=== PATIENT | female | born 1935 | race Caucasian/White ===

== ENCOUNTER 2020-08-04 07:44 | Outpatient (CLI) | payer MEDICARE ==
[~2020-08-04 07:44] MED LIST: ASPI-696 PO; ATOR40TA78 PO; CARV6.2512 PO; DIGO125T81 PO; DOCU-131 PO; FURO40TA6 PO; LISI2.5T PO; METO-282 PO; TICA90TA PO
== END 2020-08-04 23:59 | disposition home or self-care (01) ==
LOC: CVU 07:44
PROVIDERS: ATTEND Internal Medicine Clinical Cardiac Electrophysiology
DX: I08.8 Other rheumatic multiple valve diseases (principal); I10 Essential (primary) hypertension; I21.3 ST elevation (STEMI) myocardial infarction of unspecified site; I24.0 Acute coronary thrombosis not resulting in myocardial infarction
CPT/HCPCS: 93306

== ENCOUNTER 2021-01-24 11:39 | Emergency (ER) | payer MEDICARE ==
[~2021-01-24] VITALS: Ht 144.8 cm; Wt 38.5 kg
[~2021-01-24 11:39] MED LIST changes: +ATOR-2 PO; +CARV3.122 PO; +CARV6.252 PO; +DIGO125T85 PO
[2021-01-24 12:05] VITALS: BP 134/89
[2021-01-24] MEDS ORDERED: CARBAMIDE PEROXIDE EAR DROPS 6.5%, 15ML EACH EAR ONE (13:30)
[2021-01-24] MEDS ORDERED: CARBAMIDE PEROXIDE EAR DROPS 6.5%, 15ML ONE (13:34)
== END 2021-01-24 16:50 | disposition home or self-care (01) ==
LOC: ED 15:15
DX: H61.23 Impacted cerumen, bilateral (principal); S00.411 Abrasion of right ear; I25.2 Old myocardial infarction; Z95.0 Presence of cardiac pacemaker; X58.XXXS Exposure to other specified factors, sequela
CPT/HCPCS: 69210; 99284